=== PATIENT | female | born 1970 | race Caucasian/White ===

== ENCOUNTER 2019-09-04 07:27 | Emergency (ER) | payer OTHER ==
[~2019-09-04] VITALS: Ht 175.3 cm; Wt 54.4 kg
--- NOTE | 2019-09-04 07:50 | NUR ---
SCALP LAC, NECK, RUE PAIN S/P MECHANICAL GLF. DENIES KO. PATIENT A/OX4, VERBALLY RESPONSIVE, NO DISTRESS NOTED, NOTED MILD BLEEDING. PATIENT DENIES N/V. FAMILY AT BEDSIDE.
[2019-09-04] MEDS ORDERED: HYDROCODONE/APAP 10/325MG 1 EA TABLET PO ONE (08:00)
[2019-09-04] MEDS ORDERED: HYDROCODONE/APAP 10/325MG 1 EA TABLET ONE (08:05)
--- NOTE | 2019-09-04 08:10 | NUR ---
LACERATION CLEANSED WITH NORMAL SALINE.
[2019-09-04] MEDS ORDERED: LIDOCAINE 1%-EPI 1:100,000 20 ML VIAL ONE (08:23)
[2019-09-04] MEDS ORDERED: LIDOCAINE 1%-EPI 1:100,000 20 ML VIAL IJ ONE (08:30)
[2019-09-04] MEDS ORDERED: TDAP [DIPH/PERTUSSIS/TET] 0.5 ML VIAL IM ONE ×2 (10:29→10:30)
--- NOTE | 2019-09-04 10:53 | NUR ---
Patient discharged to home in stable condition. Written and verbal after care instructions given. Patient verbalizes understanding of instruction.
[2019-09-04 10:54] VITALS: BP 147/94
== END 2019-09-04 10:54 | disposition home or self-care (01) ==
LOC: ER 07:30
DX: S01.01XA Laceration without foreign body of scalp, initial encounter (principal); S40.011A Contusion of right shoulder, initial encounter; G43.909 Migraine, unspecified, not intractable, without status migrainosus; W01.0XXA Fall on same level from slipping, tripping and stumbling without subsequent striking against object, initial encounter; Y93.01 Activity, walking, marching and hiking; Y92.89 Other specified places as the place of occurrence of the external cause; Y99.8 Other external cause status
CPT/HCPCS: 12032; 73030; 73060; 90471; 90715; 99284; A6403; J3490

== ENCOUNTER 2019-09-13 01:07 | Emergency (ER) | payer OTHER ==
[~2019-09-13] VITALS: Ht 175.3 cm; Wt 54.4 kg
[2019-09-13 01:31] VITALS: BP 137/86
== END 2019-09-13 01:39 | disposition home or self-care (01) ==
LOC: ER 01:09
DX: S01.01XD Laceration without foreign body of scalp, subsequent encounter (principal); G43.909 Migraine, unspecified, not intractable, without status migrainosus; X58.XXXD Exposure to other specified factors, subsequent encounter